=== PATIENT | female | born 1935 | race Caucasian/White ===

== ENCOUNTER → 2018-12-30 | Outpatient (CLI) | payer MEDICARE, OTHER ==
[~2018-12-30] MED LIST: ACET500 PO; ASPI81EC PO; CALGLU500 PO; CONEST.625; CONEST.625 PO; Cranberry500 M1 PO; DIGO.125 PO; DILTIAZ ER PO; FISH1000 PO; LEVSOD100; LEVSOD125 PO; LEVSOD150 PO; LISI5 PO; METO25 PO; MULVITA PO; NITR100CA PO; SPIR25 PO; TOLT2ER; TOLT4 PO; TORSE20 PO; XARELTO15 MG PO; [UNRECOGNIZED DRUG - OTHER]; [UNRECOGNIZED DRUG - OTHER] PO
== END | disposition home or self-care (01) ==
LOC: LAB SHORT 12:58 → LAB 12:58
DX: R30.0 Dysuria (principal)
CPT/HCPCS: 87077; 87086; 87186

== ENCOUNTER 2019-04-14 02:02 | Inpatient (IN) | payer MEDICARE, OTHER ==
[~2019-04-14] VITALS: Ht 177.8 cm; Wt 70.0 kg
[2019-04-14 02:13] LABS: PCO2 Arterial 46.8 mmHg (35-45); PO2 Arterial 53.1 mmHg (80-100)
[2019-04-14 02:43] LABS: BASOPHILS ABSOLUTE AUTO 0.07 K/mm3 (0.00-0.23); BASOPHILS PERCENT AUTO 1 % (0-2); EOSINOPHILS PERCENT AUTO 3 % (0-6); Hematocrit 48.3 % (33.0-51.0); Hemoglobin 15.3 g/dL (11.5-16.0); IMMATURE GRAN ABSOLUTE AUTO 0.04 K/mm3 (0.00-0.10); IMMATURE GRAN PERCENT AUTO 1 % (0-1); LYMPHOCYTES ABSOLUTE AUTO 1.78 K/mm3 (0.84-5.20); LYMPHOCYTES PERCENT AUTO 26 % (21-46); MONOCYTES ABSOLUTE AUTO 0.29 K/mm3 (0.16-1.47); MONOCYTES PERCENT AUTO 4 % (4-13); Mean Corpuscular HGB 33.3 pg (26.0-34.0); Mean Corpuscular HGB Conc 31.7 g/dL (31.5-36.5); Mean Corpuscular Volume 105 fL (80-100); Mean Platelet Volume 9.9 fL (9.1-12.4); NEUTROPHILS ABSOLUTE AUTO 4.46 K/mm3 (1.96-9.15); NEUTROPHILS PERCENT AUTO 65 % (41-73); Platelet Count 239 K/mm3 (150-400); RDW Coefficient Variation 13.2 % (11.7-14.2); RDW Standard Deviation 51.6 fL (35.1-46.3); Red Blood Cell Count 4.59 M/mm3 (3.80-5.20); White Blood Cell Count 6.84 K/mm3 (4.00-11.30)
[2019-04-14] MEDS ORDERED: Amiodarone HCl200 MG PO ×2 (02:56→02:59)
[2019-04-14] MEDS ORDERED: CRANBERRY PO (02:57)
[2019-04-14] MEDS ORDERED: METO25ER PO ×2 (02:57)
[2019-04-14] MEDS ORDERED: MYRBETRIQ50 MG PO (02:57)
[2019-04-14] MEDS ORDERED: ACETAMINOPHEN500 MG PO (02:58)
[2019-04-14] MEDS ORDERED: Once Daily1 EACH PO (02:58)
[2019-04-14] MEDS ORDERED: XARELTO15 MG PO ×2 (02:59→04:40)
[2019-04-14] MEDS ORDERED: Lisinopril2.5 MG PO (02:59)
[2019-04-14] MEDS ORDERED: DOCU100 PO (02:59)
[2019-04-14] MEDS ORDERED: ACET500 PO (03:00)
[2019-04-14 03:04] LABS: Troponin I <0.015 ng/mL (0.000-0.040)
[2019-04-14 03:11] LABS: Anion Gap 7 mmol/L (6-16); Blood Urea Nitrogen 23 mg/dL (8-24); CO2, Blood 26 mmol/L (21-32); Chloride, Blood 104 mmol/L (98-108); Creatinine, Blood 0.92 mg/dL (0.40-1.00); Glomerular Filtration Rate 58 (60-); Glucose, Blood 251 mg/dL (70-99); Potassium, Blood 4.6 mmol/L (3.5-5.5); Sodium, Blood 137 mmol/L (136-145); Total Protein, Blood 7.4 g/dL (6.4-8.2)
[2019-04-14 03:12] LABS: Alanine Aminotransfer (ALT/SGP 21 U/L (12-78); Albumin, Blood 3.8 g/dL (3.4-5.0); Albumin/Globulin Ratio 1.1 (0.8-1.8); Alk Phos 130 U/L (50-136); Aspartate Aminotrans (AST/SGOT 28 U/L (12-37); Bilirubin, Total 0.4 mg/dL (0.1-1.0); Globulin, Blood 3.6 g/dL (2.2-4.0)
[2019-04-14 03:18] LABS: International Normalized Ratio 1.57
[2019-04-14] MEDS ORDERED: LANOXIN125 MCG PO (03:55)
[2019-04-14] MEDS ORDERED: LEVO-T150 MCG PO (03:56)
[2019-04-14] MEDS ORDERED: METO25 PO (04:35)
[2019-04-14] MEDS ORDERED: PACERONE100 MG (04:36)
[2019-04-14] MEDS ORDERED: Amiodarone HCl200 MG (04:37)
--- NOTE | 2019-04-14 06:03 | NUR ---
ADMIT NOTE: PT ARRIVED TO ICU 8 VIA GURNEY ON BIPAP, SATS 99-100%. PT SWITCHED TO O2 3L N/C. SATS REMAINING 97-99%. PT DENIED PAIN, SOB, OR NAUSEA. PT A+O X4, VSS, PT FOLLOWING COMMANDS AND ASWERING QUESTIONS APPROPRIATELY. PT AND PT SPOUSE STATED THEY ATE DINNER TONIGHT AT [facility] AND WENT HOME AND HAD THEIR ROUTINE SNACKS. PT STATES SHE HAS A CHOCOLATE ICE CREAM BAR AT NINE O'CLOCK AND A COOKIE PRIOR TO FALLING ASLEEP. PT STATED SEVERAL TIMES THAT SHE BELIEVES SHE HAD A REACTION TO THE MEDICATION AND POINTED TO AMIODARONE ON HER MED LIST. PT DENIES HAVING THIS REACTION BEFORE. PT STATED AFTER TAKING HER MEDICATIONS BEGAN TO FEEL SOB AND FELT LIKE SHE COULDNT CATCH HER BREATH. PT DENIES DIABETES AND DENIES FAM HX OF. PT TEMP PROBE CROSS CATH PLACED IN ED WHICH IN REPORT HAD 850cc EMPTIED IN ED, PT WITH APPRX 350cc SHORTLY AFTER ARRIVAL. BP BECOMING SLIGHTLY HYPOTENSIVE, WILL CONTINUE TO MONITOR.
--- NOTE | 2019-04-14 06:39 | NUR ---
PT RECEIVED PHONE CALL FROM ASHLEE ACOSTA. PT CURRENTLY UP TO BSC TO HAVE BM.
--- NOTE | 2019-04-14 08:00 | NUR ---
INITIAL ASSESSMENT: PT ALERT AND ORIENTED TO SELF, DAY, YEAR, HOWEVER APPEARS FORGETFUL DURING CONVERSATIONS. LUNG SOUNDS CLEAR IN THE UPPER LOBES BUT SLIGHTLY DIMINISHED IN BASES. SATTING >90% ON 3 L NC. LOWERED TO 2L AND PT STILL SATTING >90%. HEART RHYTHM IRREGULAR, SBP 80-100, HR 90S. BOWEL TONES PRESENT, NORMOACTIVE. TEMP CROSS IN PLACE DRAINING CLEAR YELLOW FLUID. PT HAD 550ML URINE OUTPUT AT BEGINNING OF SHIFT. PT HAS 2 BILAT AC IVS. SALINE LOCKED, PATENT. PT CURRENTLY NPO. NO CURRENT COMPLAINTS. WILL CONTINUE TO MONITOR.
--- NOTE | 2019-04-14 08:34 | NUR ---
SPOKE WITH DR. MAYO RE DECREASING SBP, CURRENTLY IN THE 80S. TELEPHONE ORDER TO HOLD METOPROLOL FOR SBP BELOW 90 AND HOLD LASIX DOSE.
[2019-04-14 11:16] LABS: CPK Creatine Kinase 46 U/L (26-193); Troponin I <0.015 ng/mL (0.000-0.040)
--- NOTE | 2019-04-14 12:19 | NUR ---
PT EATING LUNCH. PT DISCUSSED BEING DISCHARGED. ASKED IF PT WAS WANTING TO LEAVE AMA SHE STATED NO SHE WOULD LIKE TO DISCUSS PALLIATIVE CARE. PALLIATIVE CONSULT ORDERED.
--- NOTE | 2019-04-14 13:04 | NUR ---
Called to see patient after speaking [facility] physician about plan of care. pt expressing wanting to go home wih palliative treatment only. came in and they are supposed to speak with son evi lives in [place]. Updated [facility], she will update physician to speak with pt son. Will assist as needed.
--- NOTE | 2019-04-14 16:54 | NUR ---
SHIFT SUMMARY: PT IS ALERT AND ORIENTED TO DAY, YEAR, FAMILY, SELF. PT IS EXPERIENCING SOME CONFUSION DURING CONVERSATIONS. PT HAS TEMP AROUND 99.0. NO COMPLAINTS OF PAIN THROUGHOUT SHIFT. HAS STATED SHE FEELS BETTER. LUNG SOUNDS CLEAR WITH SOME COURSENESS IN THE LEFT UPPER LOBE. SATTING >90% ON 1L NC. HEART RYTHYM IS IRREGULAR. SBP 80-100, HR IN 80-90S THE MAJORITY OF SHIFT. HOWEVER HR HAS BEEN ELEVATED GREATER THAN 120 AT THE TIME OF THIS NOTE. BOWEL TONES PRESENT HOWEVER NO BM THIS SHIFT. TEMP CROSS IN PLACE DRAINING CLEAR YELLOW URINE. BILAT AC IVS. PATENT AND SL. PT WAS NPO AT BEGINNING OF SHIFT BUT IS CURRENTLY ON A CARDIAC DIET. NO ACUTE CHANGES THIS SHIFT. WILL CONTINUE TO MONITOR
--- NOTE | 2019-04-14 17:09 | NUR ---
DR. CONNELL BY TO SEE PT. GAVE ORDERS FOR 0.5MG DIGOXIN IV, ONE TIME, SEE ORDERS.
--- NOTE | 2019-04-14 17:43 | NUR ---
Spiritual Care inital note: Pt and spouse were open to prayer and spiritual support. With regard to her progressive illness, Antonia states she feels at peace "if God wants to take me home." She is not afraid of and admits "it has been hard" lately. She appears quite frail and tired. Visit kept short.
--- NOTE | 2019-04-14 19:22 | NUR ---
LAC IV LEAKING A LITTLE AND CAUSING PT SOME DISCOMFORT. IV D/C'D, CATH TIP INTACT. GAUZE APPLIED AND WRAPPED IN HILTON BANDAGE.
[2019-04-14 19:34] LABS: CPK Creatine Kinase 50 U/L (26-193); Troponin I <0.015 ng/mL (0.000-0.040)
--- NOTE | 2019-04-15 00:50 | NUR ---
START OF SHIFT: PT UP TO CHAIR AT START OF SHIFT FOR ADLS. PT VERBALIZING NEEDS BUT TENDS TO WANT TO DO THINGS INDEPENDENTLY NOT REMEMBERING THE HAZARDS OF CABLES AND CORDS. BED ALARM ON WHILE PT IN BED. PT FORGETFUL NOT REMEMBERING THAT SHE HAS A CATHETER OR WHICH BUTTON IS FOR THE NURSE. PT ENTERTAINS SELF WITH READING AND TV. PT, HOWEVER, REMEMBERED HOW TO USE THE PHONE AND STATED HAD CALLED SPOUSE AT HOME. PT OTHERWISE PLEASANT AND WITH NO COMPLAINTS. WILL CONTINUE TO MONITOR.
--- NOTE | 2019-04-15 02:54 | NUR ---
UPDATE RE: O2: O2 N/C OFF AT APPRX 2245. AT APPRX 0000 PT SATS 85-89% PT APPEARS TO HAVE SOME OBSTRUCTIVE SLEEP APNEA. O2 1.5L VIA N/C APPLIED. PT NOW REMAINING >92% WHILE ASLEEP.
[2019-04-15 04:27] LABS: Free Thyroxine 1.35 ng/dL (0.70-1.60)
[2019-04-15 04:30] LABS: Thyroid Stimulating Hormone 6.22 uIU/mL (0.360-4.800)
--- NOTE | 2019-04-15 04:49 | NUR ---
PT'S SON CALLED AND WAS UPDATED.
--- NOTE | 2019-04-15 07:07 | NUR ---
PT UP TO CHAIR FOR AM. VSS. PT TOLERATED WELL. PT VERBALIZED UNDERSTANDING RE: LIMITED CODE AND CREATING A POLST WHEN PT GETS HOME. PT WITH CALL LIGHT WITHIN REACH. PT WATCHING TV.
--- NOTE | 2019-04-15 08:00 | NUR ---
INITIAL ASSESMENT PT VERY PLEASNT AND COOPREATIVE. NUERO INTACT SHUKRI DENIES PAIN. VSS, AF IN THE 90S WILL GIVE AM RX FOR AF. AF EDUCATION COMPLETE. SBP 120S. PALP PULSES T/O AND NO DEDEMA. RA WITH SATS WNL, CLEAR AND DIM, LASIX ONBOARD. TOLERATING DIET WITH NO C/O N/V, NO BM, ABD SOFT ROUND AND NONTENDER WITH BT T/O WITH FLATUS. UO VIA CROSS, WILL D/C PRIOR TO D/C, CLEAR YELLOW. SKIN INTACT. AT BEDSIDE AND WILL D/C HOME PER MD ORDER
[2019-04-15] MEDS ORDERED: LANOXIN125 MCG PO (11:35)
[2019-04-15] MEDS ORDERED: FURO40 PO (11:36)
--- NOTE | 2019-04-15 12:00 | NUR ---
DISCHARGE PT D/C HOME VIA W/C IN PERSONAL VEHICLE WITH AND ALL BELONGINGS. EDUCATION COMPLETE, IV D/C AND PT SAFELY TRANSPORTED TO CAR.
== END 2019-04-15 12:00 | disposition home or self-care (01) | DRG 291 ==
LOC: ER 02:02 → ICUW 04:04 → ICUE 04:04
PROVIDERS: Emergency Medicine; Internal Medicine Interventional Cardiology; ADMIT Internal Medicine
DX: I11.0 Hypertensive heart disease with heart failure (principal); J96.01 Acute respiratory failure with hypoxia; I48.21 Permanent atrial fibrillation; I50.43 Acute on chronic combined systolic (congestive) and diastolic (congestive) heart failure; Z79.01 Long term (current) use of anticoagulants; E03.9 Hypothyroidism, unspecified; G31.84 Mild cognitive impairment of uncertain or unknown etiology; R73.9 Hyperglycemia, unspecified
CPT/HCPCS: 36415; 36600; 51702; 71045; 80053; 82550; 82803; 82947; 83036; 83605; 83735; 83880; 84439; 84443; 84484; 85025; 85610; 93005; 93010; 94660; 96365-59; 96375-59; 99285-25; J1160; J1940; J1956

== ENCOUNTER → 2019-09-29 | Outpatient (CLI) | payer MEDICARE, OTHER ==
[~2019-09-29] MED LIST changes: +ACETAMINOPHEN500 MG PO; +Amiodarone HCl200 MG; +Amiodarone HCl200 MG PO; +CRANBERRY PO; +DOCU100 PO; +FURO40 PO; +LANOXIN125 MCG PO; +LEVO-T150 MCG PO; +Lisinopril2.5 MG PO; +METO25ER PO; +MYRBETRIQ50 MG PO; +Once Daily1 EACH PO; +PACERONE100 MG
[2019-09-29 12:00] LABS: Bilirubin, Urine Neg (Neg); Blood, Urine 4+ (Neg); Glucose Qualitative, Urine Neg (Neg); Ketones, Urine Neg (Neg); Leukocyte Esterase, Urine 2+ (Neg); Nitrite, Urine Pos (Neg); Protein, Urine Neg (Neg); Specific Gravity, Urine 1.015 (1.003-1.022); Urobilinogen, Urine NORM (Normal)
[2019-09-29 12:11] LABS: Appearance, Urine Hazy (Clear); Color, Urine Yellow (P-Yellow)
[2019-09-29 12:12] LABS: Bacteria Mod /hpf; Squamous Epithelial Cells Rare /hpf (Few)
== END | disposition home or self-care (01) ==
LOC: LAB 11:09 → LAB SHORT 11:09 → LAB FUT 09-28 09:00
DX: I48.91 Unspecified atrial fibrillation (principal); I11.9 Hypertensive heart disease without heart failure; E03.9 Hypothyroidism, unspecified; N39.0 Urinary tract infection, site not specified
CPT/HCPCS: 81001; 87077; 87086; 87186

== ENCOUNTER 2019-11-29 04:49 | Inpatient (IN) | payer MEDICARE, OTHER ==
[~2019-11-29] VITALS: Ht 177.8 cm; Wt 71.4 kg
[2019-11-29 05:03] LABS: PCO2 Arterial 44.9 mmHg (35-45); PO2 Arterial 102 mmHg (80-100); pH Blood Arterial 7.32 (7.35-7.45)
[2019-11-29 05:05] LABS: BASOPHILS ABSOLUTE AUTO 0.06 K/mm3 (0.00-0.23); BASOPHILS PERCENT AUTO 1 % (0-2); EOSINOPHILS ABSOLUTE AUTO 0.18 K/mm3 (0.00-0.68); EOSINOPHILS PERCENT AUTO 2 % (0-6); Hematocrit 50.6 % (33.0-51.0); Hemoglobin 16.3 g/dL (11.5-16.0); IMMATURE GRAN ABSOLUTE AUTO 0.04 K/mm3 (0.00-0.10); IMMATURE GRAN PERCENT AUTO 1 % (0-1); LYMPHOCYTES ABSOLUTE AUTO 3.19 K/mm3 (0.84-5.20); LYMPHOCYTES PERCENT AUTO 37 % (21-46); MONOCYTES ABSOLUTE AUTO 0.51 K/mm3 (0.16-1.47); MONOCYTES PERCENT AUTO 6 % (4-13); Mean Corpuscular HGB 32.3 pg (26.0-34.0); Mean Corpuscular HGB Conc 32.2 g/dL (31.5-36.5); Mean Corpuscular Volume 100 fL (80-100); Mean Platelet Volume 9.8 fL (9.1-12.4); NEUTROPHILS ABSOLUTE AUTO 4.55 K/mm3 (1.96-9.15); NEUTROPHILS PERCENT AUTO 53 % (41-73); Platelet Count 203 K/mm3 (150-400); RDW Standard Deviation 50.5 fL (35.1-46.3); Red Blood Cell Count 5.05 M/mm3 (3.80-5.20); White Blood Cell Count 8.53 K/mm3 (4.00-11.30)
[2019-11-29 05:26] LABS: Alanine Aminotransfer (ALT/SGP 20 U/L (12-78); Albumin, Blood 4.2 g/dL (3.4-5.0); Albumin/Globulin Ratio 1.2 (0.8-1.8); Alk Phos 116 U/L (50-136); Anion Gap 7 mmol/L (6-16); Aspartate Aminotrans (AST/SGOT 17 U/L (12-37); Bilirubin, Total 0.6 mg/dL (0.1-1.0); Blood Urea Nitrogen 18 mg/dL (8-24); Bun/Creatinine Ratio 20.7 (12.0-20.0); CO2, Blood 27 mmol/L (21-32); Calcium, Blood 9.3 mg/dL (8.5-10.1); Chloride, Blood 105 mmol/L (98-108); Creatinine, Blood 0.87 mg/dL (0.40-1.00); Globulin, Blood 3.5 g/dL (2.2-4.0); Glomerular Filtration Rate >60 (60-); Glucose, Blood 166 mg/dL (70-99); Sodium, Blood 139 mmol/L (136-145); Total Protein, Blood 7.7 g/dL (6.4-8.2); Troponin I <0.015 ng/mL (0.000-0.040)
[2019-11-29] MEDS ORDERED: EUTHYROX137 MCG PO (05:26)
[2019-11-29] MEDS ORDERED: DOCU100 PO (05:26)
[2019-11-29] MEDS ORDERED: MYRBETRIQ50 MG PO (05:26)
[2019-11-29] MEDS ORDERED: SPIR25 PO (05:28)
[2019-11-29] MEDS ORDERED: METO100 PO (05:31)
[2019-11-29] MEDS ORDERED: Cran-Max500 MG PO (05:32)
[2019-11-29] MEDS ORDERED: ACET500 PO (05:32)
[2019-11-29] MEDS ORDERED: ENTRESTO 97 MG1 EACH PO (05:33)
[2019-11-29] MEDS ORDERED: XARELTO15 MG PO (05:34)
[2019-11-29] MEDS ORDERED: TORS10 PO (05:35)
[2019-11-29] MEDS ORDERED: OMEP20ER PO (11:20)
[2019-11-29] MEDS ORDERED: K-Dur10 MEQ PO (11:21)
[2019-11-29] MEDS ORDERED: Hair, Skin & N1 EACH PO (11:22)
[2019-11-29 14:22] LABS: Troponin I <0.015 ng/mL (0.000-0.040)
[2019-11-29 15:01] LABS: Digoxin (Lanoxin) <0.06 ug/mL (0.80-2.00)
--- NOTE | 2019-11-29 18:12 | NUR ---
TRANSFER SUMMARY REPORT GIVEN TO MEDICAL FLOOR RN AND PATIENT TRANSFERED UP TO MEDICAL FLOOR ROOM 308. PATIENT ALERT AND ORIENTED X3 - FORGETFUL AT TIMES. AT BEDSIDE T/O DAY. HEART RATE CONTROLLED AFIB AT 80 BEATS PER MINUTE. ROOM AIR. LUNG SOUNDS CLEAR. PATIENT DENIES ANY PAIN T/O SHIFT. PATIENT AMBUALTED TO BATHROOM MULTIPLE TIMES T/O SHIFT TO VOID CLEAR YELLOW URINE. PATIENT LEFT UNIT IN NO ACUTE DISTRESS WITH BELONGINGS.
--- NOTE | 2019-11-29 18:29 | NUR ---
1740 RECEIVED PT TO RM 308 VIA W/C. IMMEDIATELY AMBULATED TO [facility] TO VOID; 175cc CL YELLOW WITH HEAVY INCONTINENCE IN PULLUP. PT SLIGHTLY UNSTEADY WHEN AMBULATING BUT DOES NOT LIKE TO BE ASSISTED. PT USED TO BEING INDEPENDENT AT HOME WITH HER . BED ALARM PLACED FOR SAFETY. A-FIB ON TELE; XARELTO GIVEN PER EMAR. PT DENIED FURTHER NEEDS. TO AT BS FOR A WHILE AFTER TX, BUT THEN HAD TO LEAVE. ADMITTED FOR RESP FAILURE, BUT SENT TO ON RA AND DID NOT APPEAR TO BECOME SOB WITH ACTIVITY. PER REPORT FROM PATTERN RULER, PT TO D/C TOMORROW. CALL LT IN REACH.
--- NOTE | 2019-11-30 06:20 | NUR ---
11/30/19 0545 PLEASANT BUT FORGETFUL. BED ALARM SOUNDING SEVERAL TIMES LAST NIGHT DUE TO HER WANTING TO GO TO THE BATHROOM. VITALS STABLE. HEART MONITOR SHOWING STABLE ATRIAL FIB. SLIGHT SOB WITH ACTIVITY. NO C/O DISCOMFORT.
--- NOTE | 2019-11-30 14:29 | NUR ---
CONFUSION PT APPEARS TO BE CONFUSED/FORGETFULL AT TIMES, PULLING OFF HER TELEMETRY AND PULLED OUT HER IV SAYING THAT SHE WAS GETTING READY FOR A SHOWER, THE PT HAS BEEN UP WONDERING IN THE BAÑUELOS, HER IS AT THE BEDSIDE, PT IS EASILY REDIRECTED WHEN REMINDED WHY SHE IS ON TELEMETRY, PT WAS GIVEN A SHOWER
--- NOTE | 2019-11-30 16:32 | NUR ---
PT TRANSFERED TO ROOM 347 PT IS A/OX3, PLEASANT AND COOPERATIVE, WITH SOME FORGETFULLNESS AND CONFUSION AT TIMES, PT IS EASILY REDIRECTABLE HER IS AT THE BEDSIDE, REPORT WAS GIVEN TO ASHLEE PICKETT AND THE PTS CARE WAS TRANSFERED TO HER, THE PT DENIED ANY SOB, N/V, OR CHEST PAIN T/O THE DAY, THE PT WAS UP AMBULATING IN THE BAÑUELOS AND IN HER ROOM T/O THE DAY, NO OTHER CHANGES NOTICED THIS SHIFT
--- NOTE | 2019-11-30 18:08 | NUR ---
PT TRANSFERRED TO ROOM 347 BY AMBULATION FROM ROOM 308. AT BEDSIDE. COOPERATIVE WITH CARE SINCE ARRIVAL TO ROOM. DENIES FEELING DIZZY OR LIGHTHEADED. TELE WAS RUNNING 105 PRIOR TO TRANSFERRING. POSSIBLE DISCHARGE TOMORROW.
--- NOTE | 2019-12-01 04:38 | NUR ---
PT WOKE THIS AM MORE CONFUSED THAN EARLIER IN THE SHIFT. PT THOUGHT THAT AN EXPLOSION HAD HAPPENED AND WAS VERY CONCERNED. PT ALSO PULLED OUT IV AND PULLED OFF TELE. PT DID ALLOW TELE TO BE PLACED BACK ON. REORIENTED AND REASSURED PT AND PT RETURNED TO BED.
--- NOTE | 2019-12-01 04:52 | NUR ---
SHIFT SUMMARY PT PLEASANTLY CONFUSED. MORE CONFUSED LATER IN THE SHIFT. EASILY REDIRECTABLE. PT AMBULATES WELL. STEADY ON FEET. TELEMETRY READING AFIB IN THE 90'S. PT DID PULL OUT HER IV AND REQUESTED TO LEAVE IT OUT. PLAN FOR PT TO D/C HOME TODAY SO DISCUSSED WITH SPANISH LANGUAGE LECTURER AND IV LEFT OUT AT THIS TIME. PT HAS NO COMPLAINTS OF PAIN. REMAINED ON RA. VITAL SIGNS STABLE. WILL CONTINUE TO MONITOR AND REPORT TO DAY RN.
[2019-12-01 07:09] LABS: Albumin, Blood 3.6 g/dL (3.4-5.0); Anion Gap 6 mmol/L (6-16); Blood Urea Nitrogen 23 mg/dL (8-24); Bun/Creatinine Ratio 26.9 (12.0-20.0); CO2, Blood 29 mmol/L (21-32); Calcium, Blood 9.1 mg/dL (8.5-10.1); Chloride, Blood 103 mmol/L (98-108); Creatinine, Blood 0.85 mg/dL (0.40-1.00); Glomerular Filtration Rate >60 (60-); Glucose, Blood 104 mg/dL (70-99); Phosphorus, Blood 4.2 mg/dL (2.5-4.9); Potassium, Blood 4.1 mmol/L (3.5-5.5); Sodium, Blood 138 mmol/L (136-145)
--- NOTE | 2019-12-01 12:30 | NUR ---
DISCHARGE INSTRUCTIONS COMPLETED AND DISCUSSED WITH PT AND HER . TO CURB VIA W/C.
== END 2019-12-01 12:00 | disposition home health service (06) | DRG 291 ==
LOC: ER 04:49 → PCU 05:57 → MEDS 17:36
PROVIDERS: Emergency Medicine; Internal Medicine; ADMIT Internal Medicine
DX: I11.0 Hypertensive heart disease with heart failure (principal); J96.01 Acute respiratory failure with hypoxia; I48.20 Chronic atrial fibrillation, unspecified; I50.23 Acute on chronic systolic (congestive) heart failure; E03.9 Hypothyroidism, unspecified; N32.81 Overactive bladder; I42.9 Cardiomyopathy, unspecified; E11.9 Type 2 diabetes mellitus without complications; Z79.01 Long term (current) use of anticoagulants; Z87.891 Personal history of nicotine dependence
CPT/HCPCS: 36415; 36600; 71045; 80053; 80069; 80162; 82803; 83605; 83880; 84443; 84484; 85025; 93005; 93010; 94640; 94660; 94760; 94762; 96374; 99285-25; J1940

== ENCOUNTER 2019-12-20 02:00 | Inpatient (IN) | payer MEDICARE, OTHER ==
[~2019-12-20] VITALS: Ht 177.8 cm; Wt 71.1 kg
[~2019-12-20 02:00] MED LIST changes: +Cran-Max500 MG PO; +ENTRESTO 97 MG1 EACH PO; +EUTHYROX137 MCG PO; +Hair, Skin & N1 EACH PO; +K-Dur10 MEQ PO; +METO100 PO; +OMEP20ER PO; +TORS10 PO
[2019-12-20 02:24] LABS: BASOPHILS ABSOLUTE AUTO 0.05 K/mm3 (0.00-0.23); BASOPHILS PERCENT AUTO 1 % (0-2); EOSINOPHILS ABSOLUTE AUTO 0.16 K/mm3 (0.00-0.68); EOSINOPHILS PERCENT AUTO 2 % (0-6); Hematocrit 46.8 % (33.0-51.0); IMMATURE GRAN ABSOLUTE AUTO 0.02 K/mm3 (0.00-0.10); IMMATURE GRAN PERCENT AUTO 0 % (0-1); LYMPHOCYTES ABSOLUTE AUTO 2.61 K/mm3 (0.84-5.20); LYMPHOCYTES PERCENT AUTO 31 % (21-46); MONOCYTES ABSOLUTE AUTO 0.43 K/mm3 (0.16-1.47); MONOCYTES PERCENT AUTO 5 % (4-13); Mean Corpuscular HGB 32.7 pg (26.0-34.0); Mean Corpuscular HGB Conc 32.1 g/dL (31.5-36.5); Mean Corpuscular Volume 102 fL (80-100); Mean Platelet Volume 10.3 fL (9.1-12.4); NEUTROPHILS ABSOLUTE AUTO 5.14 K/mm3 (1.96-9.15); NEUTROPHILS PERCENT AUTO 61 % (41-73); Platelet Count 189 K/mm3 (150-400); RDW Coefficient Variation 14.7 % (11.7-14.2); Red Blood Cell Count 4.59 M/mm3 (3.80-5.20); White Blood Cell Count 8.41 K/mm3 (4.00-11.30)
[2019-12-20 02:47] LABS: Alanine Aminotransfer (ALT/SGP 23 U/L (12-78); Albumin, Blood 3.8 g/dL (3.4-5.0); Albumin/Globulin Ratio 1.2 (0.8-1.8); Alk Phos 119 U/L (50-136); Anion Gap 7 mmol/L (6-16); Aspartate Aminotrans (AST/SGOT 18 U/L (12-37); Bilirubin, Total 0.5 mg/dL (0.1-1.0); Blood Urea Nitrogen 21 mg/dL (8-24); Bun/Creatinine Ratio 25.8 (12.0-20.0); CO2, Blood 26 mmol/L (21-32); Calcium, Blood 8.6 mg/dL (8.5-10.1); Chloride, Blood 108 mmol/L (98-108); Creatinine, Blood 0.82 mg/dL (0.40-1.00); Globulin, Blood 3.3 g/dL (2.2-4.0); Glomerular Filtration Rate >60 (60-); Glucose, Blood 245 mg/dL (70-99); Sodium, Blood 141 mmol/L (136-145); Total Protein, Blood 7.1 g/dL (6.4-8.2)
[2019-12-20 02:51] LABS: Troponin I <0.015 ng/mL (0.000-0.040)
[2019-12-20 11:04] LABS: Troponin I 0.024 ng/mL (0.000-0.040)
[2019-12-20] MEDS ORDERED: METOPROLOL SUCC25 MG PO (12:38)
[2019-12-20] MEDS ORDERED: METO100ER PO (12:39)
[2019-12-20] MEDS ORDERED: TORSE20 PO (12:42)
[2019-12-20 18:46] LABS: CPK Creatine Kinase 50 U/L (26-193); Troponin I <0.015 ng/mL (0.000-0.040)
--- NOTE | 2019-12-20 19:19 | NUR ---
ADMIT NOTE RECEIVED REPORT FROM PIYUSH MCNAMARA IN ED. PT TO ROOM VIA ROXI; 1 PERSON ASSIST TO BED. PT ORIENTED TO ROOM AND CALL LIGHT; EDUCATED ON FALL RISK AND CALLING FOR ASSISTANCE. PT A&Ox3; WAS UNSURE OF EXACT DATE, STATES 2019 AND MARIELLA IS PRESIDENT. PT REPORTS SOB WITH EXERTION; SPO2 99-100% ON 5L O2 VIA NC, TITRATED TO 2L O2 VIA NC AND AT SHIFT CHANGE PT TITRATED TO 1L O2 VIA NC. PT DENIES PAIN, CHEST PAIN/PRESSURE, NAUSEA AND DIZZINESS. NOTIFIED DR MCCRAY THAT PT REQUESTING FOOD BUT ON AN NPO DIET; PLACED NEW ORDERS FOR DIET. VSS. NO OTHER ACUTE CHANGES NOTED DURING SHIFT. REPORT GIVEN TO ONCEDDIE PICKETT.
[2019-12-21 03:51] LABS: BASOPHILS ABSOLUTE AUTO 0.03 K/mm3 (0.00-0.23); BASOPHILS PERCENT AUTO 1 % (0-2); EOSINOPHILS PERCENT AUTO 2 % (0-6); Hematocrit 41.5 % (33.0-51.0); Hemoglobin 13.5 g/dL (11.5-16.0); IMMATURE GRAN ABSOLUTE AUTO 0.01 K/mm3 (0.00-0.10); IMMATURE GRAN PERCENT AUTO 0 % (0-1); LYMPHOCYTES ABSOLUTE AUTO 1.57 K/mm3 (0.84-5.20); LYMPHOCYTES PERCENT AUTO 31 % (21-46); MONOCYTES ABSOLUTE AUTO 0.33 K/mm3 (0.16-1.47); MONOCYTES PERCENT AUTO 7 % (4-13); Mean Corpuscular HGB 32.8 pg (26.0-34.0); Mean Corpuscular HGB Conc 32.5 g/dL (31.5-36.5); Mean Corpuscular Volume 101 fL (80-100); Mean Platelet Volume 10.4 fL (9.1-12.4); NEUTROPHILS ABSOLUTE AUTO 3.07 K/mm3 (1.96-9.15); NEUTROPHILS PERCENT AUTO 60 % (41-73); Platelet Count 146 K/mm3 (150-400); RDW Coefficient Variation 14.4 % (11.7-14.2); Red Blood Cell Count 4.11 M/mm3 (3.80-5.20); White Blood Cell Count 5.11 K/mm3 (4.00-11.30)
[2019-12-21 04:09] LABS: Alanine Aminotransfer (ALT/SGP 17 U/L (12-78); Albumin, Blood 3.2 g/dL (3.4-5.0); Albumin/Globulin Ratio 1.1 (0.8-1.8); Alk Phos 77 U/L (50-136); Anion Gap 6 mmol/L (6-16); Aspartate Aminotrans (AST/SGOT 14 U/L (12-37); Blood Urea Nitrogen 19 mg/dL (8-24); Bun/Creatinine Ratio 23.9 (12.0-20.0); CO2, Blood 30 mmol/L (21-32); Calcium, Blood 8.8 mg/dL (8.5-10.1); Chloride, Blood 104 mmol/L (98-108); Globulin, Blood 2.8 g/dL (2.2-4.0); Glomerular Filtration Rate >60 (60-); Glucose, Blood 104 mg/dL (70-99); Phosphorus, Blood 4.1 mg/dL (2.5-4.9); Potassium, Blood 3.8 mmol/L (3.5-5.5); Sodium, Blood 140 mmol/L (136-145)
--- NOTE | 2019-12-21 06:28 | NUR ---
PT ALERT AT BEGINNING OF SHIFT, WOKE UP DISORIENATED BUT EASILY REDIRECTABLE AND PLEASANT. RIPPED OFF TELE LEADS AND IV OVER SHIFT, NEW 20G IV PLACED THIS AM. REMAINS IN AFIB OVER NIGHT, TIANNA SOB- ON RA. PT GETS UP STABY ASSIST, SOME INCONTINENCE OVER NIGHT. PT STATES SHE LOST A PART OF HER HEARING AIDE. RN AND TECH AT BEDSIDE THOROUGHLY SEARCHED THE ROMM/BEDDING, MISSING PIECE NOT FOUND. PT IS CONFUSED AT THIS TIME, HEARING AIDE IS IN AND WORKING SO UNSURE IF THERE REALLY IS A MISSING PIECE. WILL PASS ALONG INFO TO DAYSHIFT RN TO FOLLOW UP WHEN SHE IS MORE ORIENTATED OR FAMILY ARRIVES.
--- NOTE | 2019-12-21 18:16 | NUR ---
SHIFT SUMMARY PT A&Ox3; FORGETFUL AND CONFUSED AT TIMES. PT SBA IN ROOM. FAMILY AT BEDSIDE. PT REPORTS IMPROVEMENT OF SOB; STATES THAT SOB IS BETTER THEN WHEN SHE CAME IN. PT DENIES PAIN, CHEST PAIN/PRESSURE, NAUSEA AND DIZZINESS. PT RECEIVING IV LASIX. HR ELEVATED THIS AM 120-130'S TRENDING DOWN AVERAGING LOW 100'S. OTHER VSS. PLANS FOR DISCHARGE IN AM. NO OTHER ACUTE CHANGES NOTED DURING SHIFT. WILL CONTINUE TO MONITOR UNILT REPORT GIVEN TO ONCOMING RN.
--- NOTE | 2019-12-22 00:58 | NUR ---
12/21/191999 PTS SON AT SIDE AND VERY SUPPORTIVE; PT ABLE TO FOLLOW SIMPLE VERBAL COMMANDS; PTS SON HERE VISITING FROM [place] WHERE HE CURRENTLY LIVES; THIS NURSE REVIEWED WITH PATIENT AND SON THINGS TO EXPECT FROM THERE HOME HEALTH CARE NURSE [facility]. PTS SON--KARLA IS HERE VISITING FROM [place] WHERE HE CURRENTLY RESIDES.
--- NOTE | 2019-12-22 04:07 | NUR ---
SHIFT SUMMARY: 84 Y/O FEMALE HAD RESTLESS NIGHT LAST 1/2 SHIFT AFTER SON DEPARTED FOR EVENING; PT WAS VERY COMBATIVE TO INCLUDE ATTEMPTING KICK/HIT NURSING STAFF, CURSING & YELLING WHILE PULLING OFF CLOTHES, TELEMETRY AND REMOVING DRESSING FOR SALINE LOCK RIGHT FOREARM; PT WAS GIVEN HALDOL 2.5MG IVP AND PLACED IN BILATERAL SOFT WRIST RESTRAINTS AND NATALIO VEST FOR SAFETY; PT ALERT PERSON ONLY; DENIES PAIN OR NAUSEA; TELEMETRY REFLECTS A/FIB WITH HEART RATE 84; PT TENTATIVELY BE DISCHARGED HOME TO FAMILY AND HOME HEALTH CARE TODAY; BED ALARM APPLIED, BED LOW POSITION WITH CALL LIGHT AT SIDE; PT ON REMOTE CAMERA OBSERVATION ALL SHIFT.
--- NOTE | 2019-12-22 07:15 | NUR ---
AM ASSESSMENT: Pt being cleaned up by CLOTH ROLL WINDER's. LS with wheezing and crackles throughout. Pt states "I can't get enough air". Biox 85% on RA. Placed on 2L per NC and lasix given. Pt HOB elevated. BIox increased to 92% and pt states that she can breath much better. BT positive. Pulses palp. Wrist and mario vest restraints removed since Pt no longer pulling at lines, tubes. Bed alarm on. Pt oriented to self and following directions. Confused to place, time and situation. Thinks that she is in a cafateria but does know that she is in [place]. Will continue to monitor and treat.
[2019-12-22 08:53] LABS: Anion Gap 9 mmol/L (6-16); Blood Urea Nitrogen 25 mg/dL (8-24); Bun/Creatinine Ratio 31.2 (12.0-20.0); CO2, Blood 26 mmol/L (21-32); Calcium, Blood 9.3 mg/dL (8.5-10.1); Chloride, Blood 103 mmol/L (98-108); Glomerular Filtration Rate >60 (60-); Glucose, Blood 185 mg/dL (70-99); Potassium, Blood 3.5 mmol/L (3.5-5.5); Sodium, Blood 138 mmol/L (136-145)
--- NOTE | 2019-12-22 12:18 | NUR ---
UPDATE: Pt resting in bed. at bedside. Pt states that she is breathing much better. LS clear throughout at this time. BIOx 97% on 2L. Decreased to 1L per nc and will continue to titrate. Pt following directions well but still forgetful. States that she was having nightmares last noc. Spoke with Pt's son on phone. Son voiced concern about her spending another night and having her experiance severe confusion again and the need for restraints again. Concerned that this could exacerbate her HR and other issues. Explained that we too were concerned for this, however discharging too soon could be an issue and she could end up right back here. Assured him that we shared the same concerns and that we were taking this into consideration. Assured him that a new medication had been ordered to hopefully help her have a better night tonight (seraquel). Explained the importance of adjusting her medications for her heart and making sure they were effective in hospital prior to discharge. Son voiced understanding and appreciation for care provided. Pt call light in reach, bed alarm on. Denies needs at this time. Will monitor.
--- NOTE | 2019-12-22 18:09 | NUR ---
SHIFT SUMMARY: Pt resting in bed. Son and at bedside at this time. Pt has done well this shift. Has been confused but easily redirected. HR has remained in afib, rate 90-115 range. Pt continues to states that she had horrible "nightmares" last night. Have continued to reassure pt that we will do our best to make sure that this doesn't happen again. Pt denies other needs at this time. Stable at end of shift. Will report to night RN.
--- NOTE | 2019-12-23 00:30 | NUR ---
REPORT RECEIVED FROM PIYUSH SULLIVAN. PT TRANSPORTED TO MEDICAL FLOOR VIA W/C WITH CREATIVE LEAD ASSISTANCE. ALL BELONGINGS ARRIVED C PT. NO S/S ACUTE DISTRESS OR CHANGES FROM ASSESSMENT NOTED. PT NODDING OFF TO SLEEP ON ARRIVAL. DENIES NEEDS AT THIS TIME. CALL LIGHT, POSSESSIONS IN REACH, BED IN LOWEST POSITION WITH ALARMS ON. WILL CONTINUE TO MONITOR.
--- NOTE | 2019-12-23 00:32 | NUR ---
TRANSFER TO MEDICAL FLOOR PT MEDICAL W/ TELE STATUS. MONITOR SHOWING AFIB, HR 90's-110's. SPO2 > 92% ON RA. VSS. PT A&O TO SELF & FAMILY, FOLLOWING DIRECTIONS. PT INTERMITTENTLY CONFUSED TO LOCATION & TIME, REMOVING CLOTHING & TELEMETRY, & ATTEMPTING TO GET OUT OF BED STATING, "IT'S 7:15, I GOTTA GO TO WORK." PT REDIRECTED TO PLACE & TIME W/ PT LAYING BACK DOWN APOLOGIZING. PT PLEASANT W/ REDIRECTION. PT AMBULATING TO BATHROOM FREQUENTLY UPON CARE ASSUMPTION FOR VOIDING. PT NOW INCONTINENT W/ INCREASED NOC CONFUSION. ATTENDS IN PLACE. REPORT CALLED TO MEDICAL FLOOR RN. PT TRANSFERED TO RM 351 BY LOAGN IN WHEELCHAIR W/ BELONGINGS @ APPROX 0030.
[2019-12-23 06:02] LABS: Anion Gap 6 mmol/L (6-16); Blood Urea Nitrogen 24 mg/dL (8-24); Bun/Creatinine Ratio 29.2 (12.0-20.0); CO2, Blood 31 mmol/L (21-32); Calcium, Blood 9.2 mg/dL (8.5-10.1); Chloride, Blood 104 mmol/L (98-108); Creatinine, Blood 0.82 mg/dL (0.40-1.00); Glomerular Filtration Rate >60 (60-); Glucose, Blood 113 mg/dL (70-99); Potassium, Blood 3.9 mmol/L (3.5-5.5); Sodium, Blood 141 mmol/L (136-145)
--- NOTE | 2019-12-23 06:30 | NUR ---
SHIFT SUMMARY PT HAS HAD NO ACUTE CHANGES IN CONDITION SINCE TRANSFER TO MEDICAL FLOOR. SLEPT T/O. SBA TO BATHROOM WITH FWW. VS STABLE. PT HOPEFUL TO D/C HOME TODAY. DENIES NEEDS AT THIS TIME. CALL LIGHT, POSSESSIONS IN REACH, BED IN LOWEST POSITION WITH ALARMS ON. WILL CONTINUE TO MONITOR.
[2019-12-23] MEDS ORDERED: METO50 PO (13:17)
[2019-12-23] MEDS ORDERED: TORSE20 PO (13:18)
--- NOTE | 2019-12-23 13:34 | NUR ---
PT DCD HOME WITH AND SON. MED REC FAXED TO PHARMACY ON FILE. ALL INSTRUCTIONS REVIEWED WITH THE SON AND HE VERBALIZED AN UNDERSTANDING. HERNANDO WILL CALL WITH FOLLOW UP. IV REMOVED WITH NO ISSUES. ALL PERSONAL BELONGINGS SENT WITH THE SON. PT STABLE UPON DC.
== END 2019-12-23 13:38 | disposition home health service (06) | DRG 291 ==
LOC: ER 02:00 → PCU 03:24 → ERHOLD 03:24 → PCU 14:58 → MEDS 12-23 00:34
PROVIDERS: Emergency Medicine; Student in an Organized Health Care Education/Training Program; ADMIT Internal Medicine
DX: I11.0 Hypertensive heart disease with heart failure (principal); J96.01 Acute respiratory failure with hypoxia; I48.20 Chronic atrial fibrillation, unspecified; I50.43 Acute on chronic combined systolic (congestive) and diastolic (congestive) heart failure; G30.9 Alzheimer's disease, unspecified; F02.80 Dementia in other diseases classified elsewhere, unspecified severity, without behavioral disturbance, psychotic disturbance, mood disturbance, and anxiety; E03.9 Hypothyroidism, unspecified; I08.1 Rheumatic disorders of both mitral and tricuspid valves; I42.9 Cardiomyopathy, unspecified; Z79.01 Long term (current) use of anticoagulants; Z78.1 Physical restraint status
CPT/HCPCS: 36415; 71045; 80048; 80053; 82550; 82947; 83880; 84100; 84484; 85025; 93005; 93010; 94660; 94760; 94761; 96374; 99285-25; A9270-GY; J1630; J1940

== ENCOUNTER 2020-07-10 07:40 | Emergency (ER) | payer MEDICARE, OTHER ==
[~2020-07-10] VITALS: Ht 177.8 cm; Wt 77.1 kg
[~2020-07-10 07:40] MED LIST changes: +METO100ER PO; +METO50 PO; +METOPROLOL SUCC25 MG PO
[2020-07-10 08:13] LABS: BASOPHILS ABSOLUTE AUTO 0.03 K/mm3 (0.00-0.23); BASOPHILS PERCENT AUTO 1 % (0-2); EOSINOPHILS ABSOLUTE AUTO 0.06 K/mm3 (0.00-0.68); EOSINOPHILS PERCENT AUTO 1 % (0-6); Hemoglobin 13.6 g/dL (11.5-16.0); IMMATURE GRAN ABSOLUTE AUTO 0.01 K/mm3 (0.00-0.10); IMMATURE GRAN PERCENT AUTO 0 % (0-1); LYMPHOCYTES ABSOLUTE AUTO 0.89 K/mm3 (0.84-5.20); LYMPHOCYTES PERCENT AUTO 15 % (21-46); MONOCYTES ABSOLUTE AUTO 0.34 K/mm3 (0.16-1.47); MONOCYTES PERCENT AUTO 6 % (4-13); Mean Corpuscular Volume 94 fL (80-100); Mean Platelet Volume 9.9 fL (9.1-12.4); NEUTROPHILS ABSOLUTE AUTO 4.56 K/mm3 (1.96-9.15); NEUTROPHILS PERCENT AUTO 77 % (41-73); Platelet Count 186 K/mm3 (150-400); RDW Coefficient Variation 11.8 % (11.7-14.2); RDW Standard Deviation 40.6 fL (35.1-46.3); Red Blood Cell Count 4.25 M/mm3 (3.80-5.20); White Blood Cell Count 5.89 K/mm3 (4.00-11.30)
[2020-07-10 08:28] LABS: Anion Gap 6 mmol/L (6-16); Blood Urea Nitrogen 21 mg/dL (8-24); CO2, Blood 30 mmol/L (21-32); Calcium, Blood 9.3 mg/dL (8.5-10.1); Chloride, Blood 103 mmol/L (98-108); Creatinine, Blood 0.81 mg/dL (0.40-1.00); Glomerular Filtration Rate >60 (60-); Glucose, Blood 146 mg/dL (70-99); Potassium, Blood 3.4 mmol/L (3.5-5.5); Sodium, Blood 139 mmol/L (136-145)
== END 2020-07-10 09:44 | disposition home or self-care (01) ==
LOC: ER 07:40
PROVIDERS: Emergency Medicine
DX: I48.91 Unspecified atrial fibrillation (principal); R42 Dizziness and giddiness; E03.9 Hypothyroidism, unspecified; Z79.01 Long term (current) use of anticoagulants; Z79.899 Other long term (current) drug therapy; Z91.09 Other allergy status, other than to drugs and biological substances
CPT/HCPCS: 36415; 80048; 85025; 93005; 93010; 96360; 99284-25; J7030

== ENCOUNTER 2020-12-11 03:09 | Emergency (ER) | payer MEDICARE, OTHER ==
[~2020-12-11] VITALS: Ht 177.8 cm; Wt 63.5 kg
[2020-12-11 04:51] LABS: BASOPHILS ABSOLUTE AUTO 0.04 K/mm3 (0.00-0.23); BASOPHILS PERCENT AUTO 1 % (0-2); EOSINOPHILS ABSOLUTE AUTO 0.07 K/mm3 (0.00-0.68); EOSINOPHILS PERCENT AUTO 1 % (0-6); Hematocrit 41.4 % (33.0-51.0); Hemoglobin 13.8 g/dL (11.5-16.0); IMMATURE GRAN ABSOLUTE AUTO 0.02 K/mm3 (0.00-0.10); IMMATURE GRAN PERCENT AUTO 0 % (0-1); LYMPHOCYTES ABSOLUTE AUTO 0.71 K/mm3 (0.84-5.20); LYMPHOCYTES PERCENT AUTO 8 % (21-46); MONOCYTES ABSOLUTE AUTO 0.33 K/mm3 (0.16-1.47); MONOCYTES PERCENT AUTO 4 % (4-13); Mean Corpuscular HGB 31.6 pg (26.0-34.0); Mean Corpuscular HGB Conc 33.3 g/dL (31.5-36.5); Mean Corpuscular Volume 95 fL (80-100); Mean Platelet Volume 10.4 fL (9.1-12.4); NEUTROPHILS ABSOLUTE AUTO 7.57 K/mm3 (1.96-9.15); NEUTROPHILS PERCENT AUTO 87 % (41-73); Platelet Count 230 K/mm3 (150-400); RDW Standard Deviation 45.2 fL (35.1-46.3); Red Blood Cell Count 4.37 M/mm3 (3.80-5.20); White Blood Cell Count 8.74 K/mm3 (4.00-11.30)
[2020-12-11 05:03] LABS: Anion Gap 7 mmol/L (6-16); Blood Urea Nitrogen 21 mg/dL (8-24); Bun/Creatinine Ratio 31.6 (12.0-20.0); CO2, Blood 25 mmol/L (21-32); Calcium, Blood 8.5 mg/dL (8.5-10.1); Chloride, Blood 108 mmol/L (98-108); Creatinine, Blood 0.67 mg/dL (0.40-1.00); Glomerular Filtration Rate >60 (60-); Glucose, Blood 171 mg/dL (70-99); Potassium, Blood 3.4 mmol/L (3.5-5.5); Sodium, Blood 140 mmol/L (136-145); Troponin I <0.015 ng/mL (0.000-0.040)
[2020-12-11] MEDS ORDERED: TORS10 PO (05:38)
== END 2020-12-11 06:05 | disposition home or self-care (01) ==
LOC: ER 03:09
PROVIDERS: Student in an Organized Health Care Education/Training Program
DX: I11.0 Hypertensive heart disease with heart failure (principal); I50.9 Heart failure, unspecified; Z91.09 Other allergy status, other than to drugs and biological substances; Z79.899 Other long term (current) drug therapy; Z87.891 Personal history of nicotine dependence
CPT/HCPCS: 36415; 71045; 80048; 83880; 84484; 85025; 93005; 93010; 99285-25; A9270

== ENCOUNTER 2020-12-16 16:41 | Inpatient (IN) | payer MEDICARE, OTHER ==
[~2020-12-16] VITALS: Ht 180.3 cm; Wt 72.2 kg
[2020-12-16 17:12] LABS: BASOPHILS ABSOLUTE AUTO 0.04 K/mm3 (0.00-0.23); BASOPHILS PERCENT AUTO 1 % (0-2); EOSINOPHILS ABSOLUTE AUTO 0.07 K/mm3 (0.00-0.68); EOSINOPHILS PERCENT AUTO 1 % (0-6); Hematocrit 40.7 % (33.0-51.0); Hemoglobin 13.6 g/dL (11.5-16.0); IMMATURE GRAN ABSOLUTE AUTO 0.03 K/mm3 (0.00-0.10); IMMATURE GRAN PERCENT AUTO 0 % (0-1); LYMPHOCYTES ABSOLUTE AUTO 1.16 K/mm3 (0.84-5.20); LYMPHOCYTES PERCENT AUTO 17 % (21-46); MONOCYTES ABSOLUTE AUTO 0.39 K/mm3 (0.16-1.47); MONOCYTES PERCENT AUTO 6 % (4-13); Mean Corpuscular HGB 31.3 pg (26.0-34.0); Mean Corpuscular HGB Conc 33.4 g/dL (31.5-36.5); Mean Corpuscular Volume 94 fL (80-100); Mean Platelet Volume 10.1 fL (9.1-12.4); NEUTROPHILS ABSOLUTE AUTO 5.21 K/mm3 (1.96-9.15); NEUTROPHILS PERCENT AUTO 76 % (41-73); Platelet Count 246 K/mm3 (150-400); RDW Coefficient Variation 13.4 % (11.7-14.2); RDW Standard Deviation 45.5 fL (35.1-46.3); Red Blood Cell Count 4.34 M/mm3 (3.80-5.20)
[2020-12-16 17:37] LABS: Alanine Aminotransfer (ALT/SGP 31 U/L (12-78); Albumin, Blood 3.7 g/dL (3.4-5.0); Albumin/Globulin Ratio 1.2 (0.8-1.8); Alk Phos 86 U/L (50-136); Anion Gap 7 mmol/L (6-16); Aspartate Aminotrans (AST/SGOT 25 U/L (12-37); Bilirubin, Total 0.7 mg/dL (0.1-1.0); Blood Urea Nitrogen 33 mg/dL (8-24); Bun/Creatinine Ratio 38.8 (12.0-20.0); CO2, Blood 25 mmol/L (21-32); Calcium, Blood 9.2 mg/dL (8.5-10.1); Chloride, Blood 106 mmol/L (98-108); Creatinine, Blood 0.85 mg/dL (0.40-1.00); Globulin, Blood 3.2 g/dL (2.2-4.0); Glomerular Filtration Rate >60 (60-); Glucose, Blood 123 mg/dL (70-99); Potassium, Blood 3.9 mmol/L (3.5-5.5); Sodium, Blood 138 mmol/L (136-145); Total Protein, Blood 6.9 g/dL (6.4-8.2)
[2020-12-16] MEDS ORDERED: DONE5 PO (20:15)
[2020-12-17 00:24] LABS: Source, Urine Catheter
[2020-12-17 00:26] LABS: Appearance, Urine Hazy (Clear); Bilirubin, Urine Neg (Neg); Blood, Urine 1+ (Neg); Color, Urine Yellow (P-Yellow); Glucose Qualitative, Urine Neg (Neg); Ketones, Urine Neg (Neg); Leukocyte Esterase, Urine 1+ (Neg); Nitrite, Urine Neg (Neg); Protein, Urine Neg (Neg); Specific Gravity, Urine 1.015 (1.003-1.022); Urobilinogen, Urine NORM (Normal)
[2020-12-17 00:32] LABS: Bacteria Many /hpf; Squamous Epithelial Cells Many /hpf (Few)
[2020-12-17 03:23] LABS: BASOPHILS ABSOLUTE AUTO 0.03 K/mm3 (0.00-0.23); BASOPHILS PERCENT AUTO 0 % (0-2); EOSINOPHILS ABSOLUTE AUTO 0.03 K/mm3 (0.00-0.68); EOSINOPHILS PERCENT AUTO 0 % (0-6); Hematocrit 44.5 % (33.0-51.0); Hemoglobin 14.5 g/dL (11.5-16.0); IMMATURE GRAN ABSOLUTE AUTO 0.02 K/mm3 (0.00-0.10); IMMATURE GRAN PERCENT AUTO 0 % (0-1); LYMPHOCYTES ABSOLUTE AUTO 1.19 K/mm3 (0.84-5.20); LYMPHOCYTES PERCENT AUTO 16 % (21-46); MONOCYTES ABSOLUTE AUTO 0.45 K/mm3 (0.16-1.47); MONOCYTES PERCENT AUTO 6 % (4-13); Mean Corpuscular HGB 31.3 pg (26.0-34.0); Mean Corpuscular HGB Conc 32.6 g/dL (31.5-36.5); Mean Corpuscular Volume 96 fL (80-100); NEUTROPHILS ABSOLUTE AUTO 5.86 K/mm3 (1.96-9.15); NEUTROPHILS PERCENT AUTO 77 % (41-73); Platelet Count 246 K/mm3 (150-400); RDW Coefficient Variation 13.8 % (11.7-14.2); RDW Standard Deviation 48.3 fL (35.1-46.3); Red Blood Cell Count 4.63 M/mm3 (3.80-5.20); White Blood Cell Count 7.58 K/mm3 (4.00-11.30)
[2020-12-17 03:49] LABS: Alanine Aminotransfer (ALT/SGP 32 U/L (12-78); Albumin, Blood 3.8 g/dL (3.4-5.0); Albumin/Globulin Ratio 1.2 (0.8-1.8); Alk Phos 88 U/L (50-136); Anion Gap 6 mmol/L (6-16); Aspartate Aminotrans (AST/SGOT 24 U/L (12-37); Blood Urea Nitrogen 30 mg/dL (8-24); Bun/Creatinine Ratio 36.1 (12.0-20.0); CO2, Blood 27 mmol/L (21-32); Calcium, Blood 8.9 mg/dL (8.5-10.1); Chloride, Blood 103 mmol/L (98-108); Creatinine, Blood 0.83 mg/dL (0.40-1.00); Globulin, Blood 3.2 g/dL (2.2-4.0); Glomerular Filtration Rate >60 (60-); Glucose, Blood 151 mg/dL (70-99); Magnesium, Blood 2.3 mg/dL (1.6-2.4); Potassium, Blood 3.9 mmol/L (3.5-5.5); Sodium, Blood 136 mmol/L (136-145); Troponin I 0.016 ng/mL (0.000-0.040)
--- NOTE | 2020-12-17 05:03 | NUR ---
SHIFT SUMMARY REPORT RECIEVED FROM WAI RN, PT TO ICU 15 FROM ED @2220. TRANSFERRED WITH ASSITANCE FROM STRETCHER TO THE BED. SON WHO STATES HE IS POWER OF PRECINCT POLICE CAPTAIN ACCOMPANIED PT TO THE ROOM AND HELPED PROVIDE HISTORY AND MEDICATION RECORDS. PT ABLE TO ANSWER MOST THE QUESTIONS BUT WOULD BECOME CONFUSED AT TIMES. ALERT AND ORIENTED TO SELF AND PLACE, COULD NOT STATE YEAR OR MONTH. 02 SATS 97% ON RA, PT STATES SHE GETS SOB WHEN LAYING FLAT. DENIES CP/PRESSURE. HR, 90s-120s A.FIB/FLUTTER W/ BBB. BP IMPROVING FROM 99/79 TO 124/92. PATIENT IS FORGETFULL AND NEEDS REORIENTING. BED ALARM ON. PATIENT INCONTINENT OF BLADDER, PANTS AND BED WET, CROSS CATHETER INSERTED. VSS, NO ACUTE CHANGES. CALL LIGHT IN REACH.
--- NOTE | 2020-12-17 18:44 | NUR ---
SHIFT SUMMARY PT ALERT, ORIENTED TO SELF, FAMILY; CONFUSED TO PLACE, STATES ITS [facility] OFFICE, UNABLE TO STATE DATE OR EVENT. THIS AM PT AGGITATED, STATING SHE NEED TO GO, SHE HAD OTHER OBLIGATIONS, THIS RN REORIENTED PT AND TRANSFERED UP IN CHAIR. PT BECAME AGGITATED AGAIN AT APPROX 1045; PT REFUSING TO STAY IN BED OR CHAIR, ATTEMPTING TO GET UP, GRABBING AT STAFF AND REFUSING TO COOPERATE WITH STAFF; NOTIFIED DR AGEE, NEW ORDER FOR RESTRAINT AND ATIVAN FOR AGGITATION. PT RESTING IN BED FOR MAJOIRTY OF SHIFT. PT DENIES PAIN, CHEST PAIN, SOB, NASUEA AND DIZZINESS. HELD METOPROLOL THIS AM DUE TO BP; BP TERNDING UP T/O SHIFT, AND HR HITTING 120'S THIS AFTERNOON, NOTIFIED DR AGEE NEW ORDERS TO GIVE AM DOSE OF METOPROLOL THIS AFTERNOON, HR TRENDING DOWN AND BP STABLE. OTHER VSS. RESP RATE 20'S T/O SHIFT. NOTIFIED PT SON FOR NEED OF RESTRAINTS, AGREED TO COME IN AND SIT YAQUELIN PATIENT, APPROVED TO STAY OVER NIGHT IF NEEDED. WILL CONTINUE TO MONITOR UNTIL REPORT GIVEN TO ONCOMING RN.
--- NOTE | 2020-12-17 19:20 | NUR ---
ASSUMED CARE OF PT, BEDSIDE REPORT RECEIVED. PT IS RESTING QUIETLY RECLINING IN BED AND VISITING WITH SON AT BEDSIDE. NATALIO VEST RESTRAINT IS NOTED IN PLACE, PT IS VERBALLY REDIRECTABLE VIA SON WHO PLANS TO REMAIN AT BEDSIDE FOR THE DURATION OF THIS SHIFT, WILL ATTEMPT TO DC NATALIO RESTRAINT EARLY THIS SHIFT. PT DENIES SOB/DYSPNEA AT THIS TIME, DENIES CP/PRESSURE, DENIES PAIN, DENIES N/V. SHE IS ABLE TO STATE THAT SHE IS IN THE HOSPITAL IN [facility] HOWEVER NOT THE MONTH, YEAR, OR CIRCUMSTANCES OF ADMISSION. WILL CONT TO MONITOR.
--- NOTE | 2020-12-18 06:38 | NUR ---
PT REPORTED TO SLEEP FOR APPROXIMATELY 3 HOURS THIS SHIFT OTHERWISE AWAKE AND SPEAKING WITH SON AT BEDSIDE THROUGHOUT NOC. THIS AM SHE REFUSES HER LABS OF THIS TIME, STATES THAT SHE WANTS A SHOWER AND TO GET DRESSED, SHE WANTS TO GO HOME. SHE IS REDIRECTABLE FOR SON AND HAS BEEN NOTED TO BE DISTRUSTFUL OF HOSPITAL STAFF INTERMITTENTLY THROUGHOUT NOC. SHE CONTINUES IN AFIB, RATE CONTROLLED, PRESSURES MAINTAINING, PULSES REMAIN FULL X 4 EXTREMITIES. 675 ML URINE OUT THIS SHIFT. TAKES PILLS WHOLE WITHOUT COUGHING OR THROAT CLEARING NOTED. REPOSITIONS SELF FULLY FREQUENTLY.
[2020-12-18 07:53] LABS: BASOPHILS ABSOLUTE AUTO 0.02 K/mm3 (0.00-0.23); BASOPHILS PERCENT AUTO 0 % (0-2); EOSINOPHILS ABSOLUTE AUTO 0.02 K/mm3 (0.00-0.68); EOSINOPHILS PERCENT AUTO 0 % (0-6); Hematocrit 48.2 % (33.0-51.0); Hemoglobin 15.5 g/dL (11.5-16.0); IMMATURE GRAN ABSOLUTE AUTO 0.03 K/mm3 (0.00-0.10); IMMATURE GRAN PERCENT AUTO 0 % (0-1); LYMPHOCYTES ABSOLUTE AUTO 1.57 K/mm3 (0.84-5.20); LYMPHOCYTES PERCENT AUTO 21 % (21-46); MONOCYTES ABSOLUTE AUTO 0.45 K/mm3 (0.16-1.47); MONOCYTES PERCENT AUTO 6 % (4-13); Mean Corpuscular HGB 31.3 pg (26.0-34.0); Mean Corpuscular HGB Conc 32.2 g/dL (31.5-36.5); Mean Corpuscular Volume 97 fL (80-100); NEUTROPHILS ABSOLUTE AUTO 5.44 K/mm3 (1.96-9.15); NEUTROPHILS PERCENT AUTO 72 % (41-73); Platelet Count 228 K/mm3 (150-400); RDW Coefficient Variation 13.4 % (11.7-14.2); RDW Standard Deviation 47.4 fL (35.1-46.3); Red Blood Cell Count 4.96 M/mm3 (3.80-5.20); White Blood Cell Count 7.53 K/mm3 (4.00-11.30)
[2020-12-18 08:12] LABS: Alanine Aminotransfer (ALT/SGP 36 U/L (12-78); Albumin, Blood 3.9 g/dL (3.4-5.0); Albumin/Globulin Ratio 1.1 (0.8-1.8); Alk Phos 91 U/L (50-136); Anion Gap 8 mmol/L (6-16); Aspartate Aminotrans (AST/SGOT 27 U/L (12-37); Bilirubin, Total 1.1 mg/dL (0.1-1.0); Blood Urea Nitrogen 31 mg/dL (8-24); Bun/Creatinine Ratio 36.1 (12.0-20.0); CO2, Blood 27 mmol/L (21-32); Calcium, Blood 9.2 mg/dL (8.5-10.1); Chloride, Blood 101 mmol/L (98-108); Creatinine, Blood 0.86 mg/dL (0.40-1.00); Globulin, Blood 3.4 g/dL (2.2-4.0); Glomerular Filtration Rate >60 (60-); Glucose, Blood 106 mg/dL (70-99); Potassium, Blood 4.1 mmol/L (3.5-5.5); Sodium, Blood 136 mmol/L (136-145); Total Protein, Blood 7.3 g/dL (6.4-8.2)
--- NOTE | 2020-12-18 17:19 | NUR ---
CARE COORDINATION REFERRAL - ADMIT: 12/16/20 DISCHARGE: 12/18/20 DX: ACUTE SYSTOLIC HEART FAILURE CC: KWILCOX JOSI CALL: ASHLEE ACOSTA, (PLEASE CALL AFTER 1PM) RESIDENCE: HOME W/ SPOUSE CAREGIVER: JONATHAN DIXON, SPOUSE / PARTNER, KARLA DIXON, CHILD, DX: HTN, CHRONIC SYSTOLIC HEART FAILURE, AFIB, SEE LIST DME: NONE CCM: NONE HOME HEALTH: [id number] SUMMARY: 12/18/20- SPOKE WITH SON KARLA OVER THE PHONE. HE REPORTS THAT HE IS THE PT'S POA BOTH FINANCIALLY AND MEDICALLY. HE REPORTS THAT HE IS HERE FROM [facility] TO HELP WITH HIS MOM'S CARE. HE REPORTS THAT HIS MOM'S MEMORY HAS DECLINED BUT HER HELPS HER. SHE IS ABLE TO DRESS HERSELF AND PROVIDE BASIC CARE. THEY HAD [employer] HOME CAREGIVERS COME INTO THE HOME BI-WEEKLY FOR MEDICATION MANAGEMENT. MEDICATIONS ARE IN A LOCKED TIME MANAGED. SHE LIVES AT HOME WITH HER , WHO TAKES HER TO HER APPTS AND HER SON WILL ATTEND BY PHONE OR VIDEO. THE PT LIVES IN A SINGLE STORY HOME WITH WORKING UTILITIES AND 2 STEPS TO GET INTO THE HOME. PT HAS NOT HAD CONCERNS USING THE STAIRS. THERE ARE NO DME NEEDS. PT USES [facility] FOR HER PHARMACY. DR. AGEE WILL D/C THE PT HOME WITH [facility] AND SON ELECTED TO GO WITH [facility]. SON AND PT'S ARE CONSIDERING PUTTING THE PT INTO A MEMORY CARE FACILITY BUT THEY ARE NOT READY TO DO THAT AT THIS TIME. PT WILL DISCHARGE HOME WITH FAMILY. WILL MEET WITH SON TOMORROW TO HELP HIM GO OVER LOCAL RESOURCES SO THEY CARE MAKE AN EDUCATED DECISION. CALLED AND SPOKE WITH [facility] AND THEY WILL CALL THE SON TO SET UP INTAKE APPT.-SPENCER
--- NOTE | 2020-12-18 18:56 | NUR ---
PT'S VSS, HEART RATE MAINTAINING IN 80'S TO 110'S, PT CONFUSED TO PLACE, TIME, AND SITUATION, SON VERBALIZES THAT THIS IS BASELINE FOR HER, PT'S CROSS CATHETER REMOVED AT 1600, PT VOIDED URINE, DISCHARGE ORDER PLACED, RN SPOKE WITH JULES SHEPARD [place] AT 1630 CONCERNING DISCHARGE PLANNING, PT'S SON AND AT BEDSIDE FOR DISCHARGE TEACHING AT 1730, NO RX CHANGES AT THIS TIME, PT'S SON VERBALIZED THAT HE WILL CALL AND MAKE APPOINTMENTS FOR FOLLOW UP CARE WITH [facility], PIV FROM [facility] REMOVED AT 1730; PT, SON, AND VERBALIZE NO ADDITIONAL CONCERNS AT THIS TIME, PT DRESSED IN STREET CLOTHES, PT LEFT UNIT AT 1815 ACCOMPANIED BY RN, SON, AND VIA WHEELCHAIR WITH PERSONAL EFFECTS, AND NO OXYGEN THERAPY, MONITORING, OR IV INFUSIONS. PT ASSISTED INTO PERSONAL VEHICLE AT 1822
== END 2020-12-18 18:30 | disposition home or self-care (01) | DRG 291 ==
LOC: ER 16:41 → ICUW 22:06
PROVIDERS: Emergency Medicine; Family Medicine; Nurse Practitioner Acute Care; ADMIT Internal Medicine
DX: I11.0 Hypertensive heart disease with heart failure (principal); J96.01 Acute respiratory failure with hypoxia; I48.20 Chronic atrial fibrillation, unspecified; I50.43 Acute on chronic combined systolic (congestive) and diastolic (congestive) heart failure; G30.9 Alzheimer's disease, unspecified; F02.80 Dementia in other diseases classified elsewhere, unspecified severity, without behavioral disturbance, psychotic disturbance, mood disturbance, and anxiety; E03.9 Hypothyroidism, unspecified; Z90.710 Acquired absence of both cervix and uterus; I48.0 Paroxysmal atrial fibrillation; Z90.49 Acquired absence of other specified parts of digestive tract; Z79.899 Other long term (current) drug therapy; Z91.048 Other nonmedicinal substance allergy status
CPT/HCPCS: 36415; 51702; 71045; 80053; 81001; 83735; 83880; 84484; 85025; 85379; 93005; 93010; 96361; 96374; 96375; 96376; 99285-25; A9270; G0378; J1940; J2060; J7030